=== PATIENT | female | born 2000 | race Hispanic/Latino ===

== ENCOUNTER 2020-12-09 09:08 | Outpatient (CLI) | payer OTHER ==
[2020-12-09 17:59] LABS: SARS-CoV-2 PCR by NAA Not Detected (NotDetected)
== END 2020-12-09 09:09 | disposition home or self-care (01) ==
LOC: CSHLAB 09:08
PROVIDERS: ATTEND Family Medicine
DX: Z20.822 Contact with and (suspected) exposure to COVID-19 (principal)
CPT/HCPCS: 87635; U0003; U0005

== ENCOUNTER 2020-12-12 19:15 | Inpatient (IN) | payer MEDICAID, OTHER, SELFPAY ==
[2020-12-12] MEDS ORDERED: HYDROcodone/Acetaminophen 5/325 mg Tablet PO PRN (20:55)
[2020-12-12] MEDS ORDERED: Butorphanol Tartrate 1 MG/ML VIAL SLOW IVP PRN (20:55)
[2020-12-12] MEDS ORDERED: Lidocaine 1% (PF) 30 ML VIAL SC PRN (20:55)
[2020-12-12] MEDS ORDERED: Misoprostol 200 MCG TAB PR PRN (20:55)
[2020-12-12] MEDS ORDERED: Ondansetron PF 4 MG/2 ML Vial IVP PRN (20:55)
[2020-12-12] MEDS ORDERED: Promethazine HCl 25 MG/ML VIAL IM PRN (20:55)
[2020-12-12] MEDS ORDERED: NS / Oxytocin 40 units/1000ml 1,000 ML IV PRN (20:55)
[2020-12-12] MEDS ORDERED: Carboprost 250 MCG/ML AMP IM PRN (20:55)
[2020-12-12] MEDS ORDERED: Ibuprofen 800 MG TAB PO PRN (20:55)
[2020-12-12] MEDS ORDERED: hydrALAZINE 20 MG/ML VIAL SLOW IVP PRN (20:55)
[2020-12-12] MEDS ORDERED: Methylergonovine 0.2 MG/ML VIAL IM PRN (20:55)
[2020-12-12] MEDS ORDERED: Diphenoxylate HCl/Atropine Tablet PO PRN (20:55)
[2020-12-12 22:47] VITALS: BMI 34.5
[2020-12-12 23:00] LABS: Mean Corpuscular HGB CONC 30.2 g/dL (32.0-36.0); Mean Corpuscular Hemoglobin 22.4 pg (27.0-33.0); Mean Corpuscular Volume 74.2 fl (81.6-98.3); Mean Platelet Volume 10.9 fl (7.4-10.4); Platelet Count 372 10x3/uL (150-450); RBC Distribution Width 16.3 % (11.5-14.5); Red Blood Cell (RBC) Count 4.46 10x6/uL (3.90-5.03); White Blood Cell (WBC) Count 9.8 10x3/uL (3.5-10.5)
[2020-12-12] MEDS: Misoprostol 100 MCG TAB VAG SCH (23:11)
[2020-12-12 23:31] LABS: Hep B Surf Ag Non-Reactive S/CO (NonReactive); Syphilis Antibody Nonreactive (Nonreactive); Syphilis Antibody Index 0.02 S/CO (<1.00 Non-Reactive)
[2020-12-13 00:13] LABS: HBSAg Index 0.14 S/CO (0-0.99)
[2020-12-13] MEDS ORDERED: Fentanyl 4 mcg/Bup 0.1% Cadd 100 ML ONE ×2 (07:41→13:59)
[2020-12-13] MEDS: Fentanyl 4 mcg/Bupivacaine 0.1% Cassette 100 ML EPIDURAL SCH ×2 (08:20→14:04)
[2020-12-13] MEDS ORDERED: diphenhydrAMINE 50 MG/ML VIAL IVP PRN (08:22)
[2020-12-13] MEDS ORDERED: Naloxone HCl 0.4 mg/ml Vial IVP PRN ×2 (08:22)
[2020-12-13] MEDS ORDERED: Ondansetron PF 4 MG/2 ML Vial IVP PRN ×2 (08:22→18:13)
[2020-12-13] MEDS ORDERED: Lactated Ringer's 500 ML IV PRN (08:22)
[2020-12-13] MEDS ORDERED: Acetaminophen 325 MG TAB PO PRN (08:22)
[2020-12-13] MEDS ORDERED: Promethazine HCl 25 MG/ML VIAL IM PRN ×2 (08:22→18:13)
[2020-12-13] MEDS ORDERED: Communication Order-Pharmacy FS SCH (08:30)
[2020-12-13] MEDS ORDERED: ePHEDrine Sulfate 50 MG/10 ML VIAL SLOW IVP PRN (09:03)
[2020-12-13] MEDS: Lactated Ringer's 1,000 ML IV SCH ×3 (09:05→14:09)
[2020-12-13] MEDS ORDERED: NS w/ Oxytocin 30 units 500 ML ONE ×2 (09:19→16:15)
[2020-12-13] MEDS: Misoprostol 100 MCG TAB VAG SCH ×2 (14:07→14:08)
[2020-12-13] MEDS ORDERED: Misoprostol 200 MCG TAB ONE ×2 (16:10→16:17)
[2020-12-13] MEDS ORDERED: Erythromycin Base 0.5% Oint 1 GM TUBE ONE (17:23)
[2020-12-13] MEDS ORDERED: Hepatitis B Vaccine 10 MCG/0.5 ML SYR ONE (17:23)
[2020-12-13] MEDS ORDERED: Phytonadione Neonatal 1 MG/0.5 ML AMP ONE (17:23)
[2020-12-13] MEDS ORDERED: Preparation H Ointment 28 GM TUBE PR PRN (18:13)
[2020-12-13] MEDS ORDERED: Adacel (T-DAP) 0.5 ML SYRINGE IM ONE (18:13)
[2020-12-13] MEDS ORDERED: Lanolin Ointment 7 GM TUBE TOP PRN (18:13)
[2020-12-13] MEDS ORDERED: diphenhydrAMINE 25 MG CAP PO PRN (18:13)
[2020-12-13] MEDS ORDERED: HYDROcodone/Acetaminophen 5/325 mg Tablet PO PRN ×2 (18:13)
[2020-12-13] MEDS ORDERED: Bisacodyl 10 MG SUPP PR PRN (18:13)
[2020-12-13] MEDS ORDERED: Milk Of Magnesia 30 ML UDCUP PO PRN (18:13)
[2020-12-13] MEDS ORDERED: Benzocaine-Menthol 82.5 ML CAN TOP PRN (18:13)
[2020-12-13] MEDS ORDERED: hydrALAZINE 20 MG/ML VIAL SLOW IVP PRN (18:13)
[2020-12-13] MEDS: CEFAZOLIN 2 GM in Premix Bag 1 BAG IVPB SCH (18:23)
[2020-12-13] MEDS ORDERED: Azithromycin 500 MG in Sodium Chloride 0.9% 250 ML 250 ML IVPB SCH (18:30)
[2020-12-13] MEDS ORDERED: NS w/ Oxytocin 30 units 500 ML IVPB SCH (18:30)
[2020-12-13] MEDS: Docusate Calcium (SURFAK) 240 MG CAP PO SCH ×2 (20:51→21:46)
[2020-12-13] MEDS: Ibuprofen 800 MG TAB PO SCH (20:53)
[2020-12-14] MEDS: CEFAZOLIN 2 GM in Premix Bag 1 BAG IVPB SCH ×2 (02:19→10:58)
[2020-12-14] MEDS: Ibuprofen 800 MG TAB PO SCH ×3 (05:28→21:01)
[2020-12-14 06:09] LABS: Hemoglobin 8.4 g/dL (12.0-15.5); Mean Corpuscular HGB CONC 30.2 g/dL (32.0-36.0); Mean Corpuscular Hemoglobin 22.5 pg (27.0-33.0); Mean Corpuscular Volume 74.5 fl (81.6-98.3); Mean Platelet Volume 10.4 fl (7.4-10.4); Platelet Count 279 10x3/uL (150-450); RBC Distribution Width 16.4 % (11.5-14.5); Red Blood Cell (RBC) Count 3.73 10x6/uL (3.90-5.03); White Blood Cell (WBC) Count 14.6 10x3/uL (3.5-10.5)
[2020-12-14] MEDS: Prenatal Vitamin 1 TAB PO SCH (08:58)
[2020-12-14] MEDS: Docusate Calcium (SURFAK) 240 MG CAP PO SCH ×2 (08:58→21:01)
[2020-12-14] MEDS: Ferrous Sulfate 325 MG TAB PO SCH ×2 (08:58→16:25)
[2020-12-14 19:52] VITALS: BP 111/68; TEMP 98.2
[2020-12-15] MEDS: Ibuprofen 800 MG TAB PO SCH (05:08)
[2020-12-15] MEDS: Docusate Calcium (SURFAK) 240 MG CAP PO SCH (08:49)
[2020-12-15] MEDS: Ferrous Sulfate 325 MG TAB PO SCH (08:49)
[2020-12-15] MEDS: Prenatal Vitamin 1 TAB PO SCH (08:49)
== END 2020-12-15 11:25 | disposition home or self-care (01) | DRG 806 ==
LOC: CSHLD 20:48 → CSHPP 12-13 20:35
PROVIDERS: ADMIT Family Medicine; ATTEND Family Medicine
PROC: 10E0XZZ Delivery of Products of Conception, External Approach (ICD-10-PCS; principal; 2020-12-13)
PROC: 10D17Z9 Manual Extraction of Products of Conception, Retained, Via Natural or Artificial Opening (ICD-10-PCS; 2020-12-13)
PROC: 0W8NXZZ Division of Female Perineum, External Approach (ICD-10-PCS; 2020-12-13)
PROC: 10907ZC Drainage of Amniotic Fluid, Therapeutic from Products of Conception, Via Natural or Artificial Opening (ICD-10-PCS; 2020-12-13)
PROC: 3E033VJ Introduction of Other Hormone into Peripheral Vein, Percutaneous Approach (ICD-10-PCS; 2020-12-13)
DX: O72.2 Delayed and secondary postpartum hemorrhage (principal); O72.1 Other immediate postpartum hemorrhage; Z37.0 Single live birth; Z3A.40 40 weeks gestation of pregnancy
CPT/HCPCS: 36415; 51702; 85027; 86780; 86850; 86900; 86901; 87340; J0456; J0690; J2210; J2405; J2550; J2590; J3490; J7050

== ENCOUNTER 2020-12-29 18:28 | Emergency (ER) | payer MEDICAID ==
[2020-12-29] MEDS ORDERED: Fentanyl 100 MCG/2 ML VIAL ONE (19:10)
[2020-12-29] MEDS ORDERED: Lidocaine Viscous Sol 2% 15 ml UD Cup ONE (19:13)
[2020-12-29] MEDS ORDERED: Mag-Al Plus 1200 MG/1200 MG/120 MG/30 ML UDCUP ONE (19:13)
[2020-12-29] MEDS ORDERED: Morphine 4 MG/ML VIAL ONE (20:30)
[2020-12-29 20:31] LABS: #Eosinphils 0.4 10x3/uL (0.0-0.5); #Monocytes 0.5 10x3/uL (0.0-1.1); #Neutrophils 3.8 10x3/uL (1.5-8.4); %Basophils 0.4 % (0.0-2.0); %Eosinophils 4.5 % (0.0-6.0); %Lymphocytes 40.1 % (18.0-47.0); %Monocytes 6.1 % (0.0-10.0); %Neutrophils 48.6 % (40.0-75.0); Hemoglobin 10.5 g/dL (12.0-15.5); Mean Corpuscular HGB CONC 28.7 g/dL (32.0-36.0); Mean Corpuscular Hemoglobin 22.1 pg (27.0-33.0); Mean Corpuscular Volume 76.9 fl (81.6-98.3); Mean Platelet Volume 10.2 fl (7.4-10.4); Platelet Count 486 10x3/uL (150-450); RBC Distribution Width 17.1 % (11.5-14.5); Red Blood Cell (RBC) Count 4.76 10x6/uL (3.90-5.03); White Blood Cell (WBC) Count 7.9 10x3/uL (3.5-10.5)
[2020-12-29 20:32] LABS: Bilirubin Neg (Negative); Blood, Urine 25 (Negative); Clarity Clear (Clear); Glucose, Urine (Dipstick) Normal (Negative); Ketone, Urine Negative (Negative); Leukocyte 500 (Negative); Nitrite Negative (Negative); Protein, Urine (Dipstick) Negative (Neg-Trace); Specific Gravity, Urine 1.015 (1.002-1.036); Urobilinogen Normal mg/dL (Less than 2)
[2020-12-29 20:39] LABS: Bacteria/HPF 1+ HPF (None Seen); Mucous/LPF Rare LPF (<2+); RBC/HPF 0-3 HPF (0-3); Squamous Epithelial 0-3 HPF (0-3)
[2020-12-29 20:40] LABS: WBC/HPF 21-50 HPF (0-3)
[2020-12-29 20:42] LABS: ALT (SGPT) 41 U/L (8-55); AST (SGOT) 37 U/L (5-34); Albumin 3.6 g/dL (3.5-5.0); Alkaline Phosphatase 197 U/L (40-110); Anion Gap 14 mmol/L (10-20); BUN (Urea Nitrogen) 10 mg/dL (7.0-18.7); Bilirubin, Total 0.3 mg/dL (0.2-1.2); Calc. Creatinine Clearance 0 mL/min (70-130); Calcium 9.2 mg/dL (7.8-10.44); Carbon Dioxide 26 mmol/L (22-29); Chloride 103 mmol/L (98-107); Globulin 3.2 g/dL (2.4-3.5); Glucose 88 mg/dL (70-105); Lipase 25 U/L (8-78); Potassium 3.7 mmol/L (3.5-5.1); Protein, Total 6.8 g/dL (6.0-8.3); Sodium 139 mmol/L (136-145)
[2020-12-29 20:49] LABS: Anisocytosis SLIGHT = 6-15 cells (100X) (0-5/hpf)
[2020-12-29 20:50] LABS: Elliptocytes SLIGHT = 2-5 cells (100X) (0-1/hpf); Hypochromia SLIGHT = 6-15 cells (100X) (0-5/hpf); Large Platelets SLIGHT; Microcytosis SLIGHT = 6-15 cells (100X) (0-5/hpf); Polychromasia SLIGHT = 2-3 cells (100X) (0-2/hpf); Stomatocytes SLIGHT = 2-5 cells (100X) (0-1/hpf)
[2020-12-29 20:51] LABS: Platelet Morphology Comment Appears Increased
[2020-12-29] MEDS ORDERED: cefTRIAXone\\ROCEPHIN 1 GM VIAL ONE (22:25)
== END 2020-12-29 23:15 | disposition home or self-care (01) ==
LOC: CSHERS 18:28
DX: O86.20 Urinary tract infection following delivery, unspecified (principal); O99.63 Diseases of the digestive system complicating the puerperium; K80.70 Calculus of gallbladder and bile duct without cholecystitis without obstruction
CPT/HCPCS: 36415; 71045; 76705; 80053; 81003; 81015; 83605; 83690; 85025; 93005; 96365; 96375; J0696; J2270; J3010

== ENCOUNTER 2021-01-03 03:52 | Inpatient (IN) | payer MEDICAID ==
[2021-01-03] MEDS ORDERED: Morphine 4 MG/ML VIAL ONE (04:08)
[2021-01-03] MEDS ORDERED: Ondansetron PF 4 MG/2 ML Vial ONE ×2 (04:08→13:12)
[2021-01-03 04:28] LABS: #Neutrophils 7.7 10x3/uL (1.5-8.4); %Basophils 0.3 % (0.0-2.0); %Eosinophils 2.9 % (0.0-6.0); %Lymphocytes 17.6 % (18.0-47.0); %Monocytes 5.9 % (0.0-10.0); %Neutrophils 72.9 % (40.0-75.0); Hemoglobin 10.8 g/dL (12.0-15.5); Mean Corpuscular HGB CONC 28.7 g/dL (32.0-36.0); Mean Corpuscular Hemoglobin 21.9 pg (27.0-33.0); Mean Corpuscular Volume 76.3 fl (81.6-98.3); Platelet Count 424 10x3/uL (150-450); RBC Distribution Width 17.9 % (11.5-14.5); Red Blood Cell (RBC) Count 4.93 10x6/uL (3.90-5.03); White Blood Cell (WBC) Count 10.6 10x3/uL (3.5-10.5)
[2021-01-03 04:29] LABS: #Eosinphils 0.3 10x3/uL (0.0-0.5); #Monocytes 0.6 10x3/uL (0.0-1.1)
[2021-01-03 05:08] LABS: Bilirubin Neg (Negative); Blood, Urine Negative (Negative); Glucose, Urine (Dipstick) Normal (Negative); Ketone, Urine Negative (Negative); Leukocyte 500 (Negative); Nitrite Negative (Negative); Protein, Urine (Dipstick) Negative (Neg-Trace); Urobilinogen Normal mg/dL (Less than 2)
[2021-01-03 05:09] LABS: Clarity Turbid (Clear)
[2021-01-03 05:10] LABS: ALT (SGPT) 161 U/L (8-55); AST (SGOT) 250 U/L (5-34); Albumin 3.7 g/dL (3.5-5.0); Alkaline Phosphatase 288 U/L (40-110); Anion Gap 17 mmol/L (10-20); BUN (Urea Nitrogen) 9 mg/dL (7.0-18.7); Bilirubin, Total 0.6 mg/dL (0.2-1.2); Calc. Creatinine Clearance 0 mL/min (70-130); Calcium 9.2 mg/dL (7.8-10.44); Carbon Dioxide 22 mmol/L (22-29); Chloride 103 mmol/L (98-107); Globulin 2.9 g/dL (2.4-3.5); Glucose 125 mg/dL (70-105); Lipase 23 U/L (8-78); Protein, Total 6.6 g/dL (6.0-8.3); Sodium 138 mmol/L (136-145)
[2021-01-03 05:21] LABS: Bacteria/HPF 2+ HPF (None Seen); Mucous/LPF 1+ LPF (<2+); RBC/HPF 0-3 HPF (0-3); Squamous Epithelial 0-3 HPF (0-3)
[2021-01-03] MEDS ORDERED: Levofloxacin 500 mg/D5W 100 ml Premix Bag ONE (06:22)
[2021-01-03 06:53] LABS: SARS-CoV-2 NAA Rapid Test Not Detected (NotDetected)
[2021-01-03] MEDS ORDERED: Morphine 4 MG/ML VIAL SLOW IVP PRN ×2 (08:07→12:28)
[2021-01-03] MEDS ORDERED: Ondansetron PF 4 MG/2 ML Vial IVP PRN (08:15)
[2021-01-03] MEDS ORDERED: Ondansetron ODT 4 MG TAB SL PRN (08:15)
[2021-01-03] MEDS ORDERED: Sodium Chloride 0.9% 1,000 ML IV SCH ×2 (08:15→12:30)
[2021-01-03 12:07] VITALS: BMI 31.4
[2021-01-03] MEDS ORDERED: hydrALAZINE 20 MG/ML VIAL SLOW IVP PRN (12:28)
[2021-01-03] MEDS ORDERED: Morphine 2 MG/ML VIAL SLOW IVP PRN (12:28)
[2021-01-03] MEDS ORDERED: Acetaminophen 500 MG TAB PO PRN (12:30)
[2021-01-03] MEDS ORDERED: Ketorolac Tromethamine 30 MG/ML VIAL IVP PRN (12:30)
[2021-01-03] MEDS ORDERED: traMADol HCl 50 MG TAB PO PRN (12:30)
[2021-01-03] MEDS ORDERED: Acetaminophen 500 MG TAB PO SCH (12:45)
[2021-01-03] MEDS ORDERED: Scopolamine 1.5 mg/72 hour Patch TD SCH (13:00)
[2021-01-03] MEDS ORDERED: Lidocaine 1% PF 5 ML VIAL ONE (13:10)
[2021-01-03] MEDS ORDERED: PROPOFOL 20 ML ONE (13:10)
[2021-01-03] MEDS ORDERED: Rocuronium Bromide 10 MG/ML (10ML VIAL) ONE (13:11)
[2021-01-03] MEDS ORDERED: Metoclopramide HCl 10 MG/2 ML VIAL ONE (13:12)
[2021-01-03] MEDS ORDERED: Acetaminophen/Codeine 30-300mg Tablet PO PRN (13:17)
[2021-01-03] MEDS ORDERED: Famotidine/PF 20 mg/2ml Vial ONE (13:18)
[2021-01-03] MEDS ORDERED: Fentanyl 100 MCG/2 ML VIAL ONE ×3 (13:18→14:26)
[2021-01-03] MEDS ORDERED: HYDROcodone/Acetaminophen 5/325 mg Tablet PO PRN (13:18)
[2021-01-03] MEDS ORDERED: SUGAMMADEX SODIUM 500 MG/5 ML VIAL ONE (13:18)
[2021-01-03] MEDS ORDERED: Ketorolac Tromethamine 30 MG/ML VIAL ONE (13:19)
[2021-01-03] MEDS ORDERED: Bupivacaine 0.25% HCL 30 ML VIAL ONE (13:32)
[2021-01-03] MEDS ORDERED: EPINEPHrine 1 MG/ML AMP ONE (13:32)
[2021-01-03] MEDS ORDERED: Bupivacaine PF 0.5% 30 ML VIAL ONE (13:36)
[2021-01-03] MEDS ORDERED: Glycopyrrolate 0.2 MG/ML 5 ML SYRINGE ONE (13:58)
[2021-01-03] MEDS ORDERED: Ibuprofen 400 MG TAB PO SCH (14:00)
[2021-01-03] MEDS ORDERED: Naloxone HCl 0.4 mg/ml Vial ONE (14:16)
[2021-01-03 15:54] VITALS: TEMP 97.2
[2021-01-03] MEDS ORDERED: Ferrous Sulfate 325 MG TAB PO SCH (17:00)
[2021-01-03 18:58] VITALS: BP 122/78
[2021-01-03] MEDS ORDERED: Enoxaparin Sodium 40 MG/0.4 ML SYRINGE SC SCH (21:00)
[2021-01-08] MEDS ORDERED: Ibuprofen 600 MG TAB PO PRN (17:00)
== END 2021-01-03 18:30 | disposition home or self-care (01) | DRG 769 ==
LOC: CSHERS 03:52 → CSHTELE 07:54 → OBSVTOIN 12:28
PROVIDERS: ADMIT Specialist; ATTEND Specialist
PROC: 0FT44ZZ Resection of Gallbladder, Percutaneous Endoscopic Approach (ICD-10-PCS; principal; 2021-01-03)
DX: O99.63 Diseases of the digestive system complicating the puerperium (principal); K80.00 Calculus of gallbladder with acute cholecystitis without obstruction; Z20.822 Contact with and (suspected) exposure to COVID-19
CPT/HCPCS: 71045; 76705; 80053; 81003; 81015; 83690; 84484; 85025; 88304; 93005; 96365; 96375; J0171; J1885; J1956; J2270; J2310; J2405; J2704; J2765; J3010; S0020; S0028; U0002